=== PATIENT | female | born 1980 | race Two or more races ===

== ENCOUNTER 2022-05-23 07:30 | Inpatient (IN) | payer OTHER ==
[~2022-05-23] VITALS: Ht 149.9 cm; Wt 83.5 kg
[~2022-05-23 07:30] MED LIST: SYNTHROID88 MCG PO
== END 2022-05-25 14:29 | disposition home or self-care (01) | DRG 743 ==
LOC: CIR.AMB 07:30 → O/R 15:27 → OB/GYN 15:27
PROVIDERS: ADMIT Specialist; ATTEND Specialist
PROC: 0UT54ZZ Resection of Right Fallopian Tube, Percutaneous Endoscopic Approach (ICD-10-PCS; 2022-05-23)
PROC: 0WBH4ZZ Excision of Retroperitoneum, Percutaneous Endoscopic Approach (ICD-10-PCS; 2022-05-23)
PROC: 0DNW4ZZ Release Peritoneum, Percutaneous Endoscopic Approach (ICD-10-PCS; 2022-05-23)
PROC: 0UB64ZZ Excision of Left Fallopian Tube, Percutaneous Endoscopic Approach (ICD-10-PCS; principal; 2022-05-23 13:00)
DX: N70.11 Chronic salpingitis (principal); N73.6 Female pelvic peritoneal adhesions (postinfective); Z20.822 Contact with and (suspected) exposure to COVID-19